=== PATIENT | female | born 1985 | race Caucasian/White ===

== ENCOUNTER 2020-05-20 23:31 | Emergency (ER) | payer SELFPAY ==
[~2020-05-20] VITALS: Ht 162.6 cm; Wt 80.0 kg
--- NOTE | 2020-05-21 00:16 | PHYS DOC ---
General Adult EDM: Chief Complaint: ABDOMINAL PAIN HPI: HPI: Patient is a 35 year old female presents to emergency department the chief complaint of abdominal pain. Patient reports she is experiencing abdominal pain located in the right upper quadrant for the past 2 days. Duration is constant, character is described as knifelike. Severity is 8 out of 10. Patient also reports vomiting, nausea. Patient denies fever, diarrhea, vaginal bleeding or discharge, shortness of breath, chest pain, cough, possibility of being , hematuria, dysuria. Patient denies eating or drinking anything irregular the past 2 days and the pain started suddenly. She denies any other pain or symptoms. Patient is a poor historian and minimally coherent on exam, selectively responds to historical questions. Review of Systems: Review of Systems: Constitutional: Denies fever or chills Eyes: Denies redness or eye pain HENT: Denies nasal congestion or sore throat Respiratory: Denies cough or shortness of breath Cardiovascular: Denies chest pain or palpitations GI: Reports abdominal pain, nausea, and vomiting. Denies diarrhea : Denies dysuria or hematuria Musculoskeletal: Denies back pain or joint pain Integument: Reports rash on her back from new laundry detergent Neurologic: Denies headache, focal weakness or sensory changes Complete systems were reviewed and found to be within normal limits, except as documented in this note. Heart Score: C/O Chest Pain: N/A Current Medications: Current Medications Medications (Trade) Dose Ordered Sig/Yoselin Start Time Stop Time Status Last Admin Dose Admin Famotidine (Pepcid Vial) 20 mg 1X ONCE 05/21/20 00:00 05/21/20 00:01 UNV Ketorolac Tromethamine (Toradol 15mg Vial) 15 mg 1X ONCE 05/21/20 00:00 05/21/20 00:01 UNV Ondansetron HCl (Zofran) 4 mg 1X ONCE 05/21/20 00:00 05/21/20 00:01 UNV Sodium Chloride 1,000 ml @ 1,000 mls/hr Q1H 05/21/20 00:00 05/21/20 00:59 UNV Physical Exam: PE: Constitutional: , mild distress, non-toxic appearance HENT: Normocephalic, atraumatic Eyes: PERRL, EOMI, conjunctiva normal, no discharge Neck: Normal range of motion, no tenderness, supple Lungs & Thorax: No respiratory distress, equal chest rise and fall Abdomen: Soft, no tenderness to palpation on distracted exam. Skin: Warm, dry, no erythema, maculopapular rash noted on the back. Back: No tenderness, no CVA tenderness Extremities: No tenderness, ROM intact, no edema Neurologic: Alert and oriented X 3, normal motor function, normal sensory function, no focal deficits noted Psychologic: Affect normal, judgment normal EKG: EKG: [] Radiology/Procedures: Radiology/Procedures: [] Impression: PROCEDURE: CT ABDOMEN PELVIS WO CONTRAST Abdominal and Pelvis CT, Without Contrast: History: Reason: right sided pain eval for kidney stone / Spl. Instructions: / History: Comparison: None. Procedure: Axial images are obtained of the abdomen and pelvis, without IV or oral contrast. Oral Contrast: No Findings: Evaluation of solid organs is limited without contrast. The appendix is normal. The gallbladder is normal. Liver: Normal. Spleen: Normal. Pancreas: Normal. Adrenal Glands: Normal. Kidneys: Normal. There is no free air or free fluid. There is no lymphadenopathy. The urinary bladder small focus of air in the urinary bladder could be from recent catheter placement.. There is no pericolonic inflammation identified. There is air and stool scattered throughout the colon. Impression: Mild constipation. End impression PQRS Compliance Statement: One or more of the following individualized dose reduction techniques were util ized for this examination: 1. Automated exposure control 2. Adjustment of the mA and/or kV according to patient size 3. Use of iterative reconstruction technique Electronically signed by: Christiano Santana III, MD (05/21/2020 1:55 AM) [facility] Course & Med Decision Making: Course & Med Decision Making Pertinent Labs and Imaging studies reviewed. (See chart for details) [] Patient is a 35-year-old female presents emergency department for abdominal pain x2 days. Patient is poor historian unable to answer historical questions. Labs and CT were unremarkable except for mild constipation noted, likely e tiology of her abdominal pain and drug-seeking positive for methamphetamine. Dragveronica Disclaimer: Leighton Disclaimer: This electronic medical record was generated, in whole or in part, using a voice recognition dictation system. Departure Departure Impression: Primary Impression: Constipation Qualified Codes: K59.00 - Constipation, unspecified Additional Impressions: UTI (urinary tract infection) Qualified Codes: N30.00 - Acute cystitis without hematuria Methamphetamine abuse Nausea & vomiting Qualified Codes: R11.2 - Nausea with vomiting, unspecified Disposition: 01 DC HOME SELF CARE/HOMELESS Condition: STABLE Referrals: CANDI CASTELLANOS MD Patient Instructions: Alcohol and Drug Addiction, Finding Treatment, Clear Liquid Diet, [id number], Constipation, Adult, [id number], Methamphetamine Abuse, Complications, Nausea and Vomiting, [id number], Urinary Tract Infection, [id number] Scripts Ondansetron (ONDANSETRON ODT) 4 Mg Tab.rapdis 1 TAB PO PRN Q6-8HRS PRN for NAUSEA, #16 TAB Prov: BE JACOME DO 05/21/20 Cephalexin (CEPHALEXIN) 500 Mg Capsule 1 CAP PO TID for 7 Days, #21 CAP Prov: BE JACOME DO 05/21/20 Polyethylene Glycol 3350 (MIRALAX) 17 Gm Powd.pack 1 PACKET PO DAILY PRN for CONSTIPATION, #10 PACKET 0 Refills dissolve in water Prov: BE JACOME DO 05/21/20 Sennosides/Docusate Sodium (Colace 2-in-1 Tablet) 1 Each Tablet 1 TAB PO QHS for 30 Days, #30 TAB 0 Refills Prov: BE JACOME DO 05/21/20 BE JACOME DO May 21, 2020 00:16
[2020-05-21 00:59] LABS: BASO # 0.1 x10^3/uL (0.0-0.2); BASO % 1 % (0-3); EOS % 1 % (0-3); HEMOGLOBIN 13.7 g/dL (12.0-15.5); LYMPH # 1.2 x10^3/uL (1.0-4.8); LYMPH % 16 % (24-48); MEAN CORPUSCULAR HEMOGLOBIN 30 pg (25-35); MEAN CORPUSCULAR HGB CONC 33 g/dL (31-37); MEAN CORPUSCULAR VOLUME 90 fL (79-100); MONO # 0.4 x10^3/uL (0.0-1.1); MONO % 6 % (0-9); NEUT # 5.4 x10^3/uL (1.8-7.7); NEUT % 76 % (31-73); PLATELET COUNT 313 x10^3/uL (140-400); RED BLOOD COUNT 4.65 x10^6/uL (3.50-5.40); WHITE BLOOD COUNT 7.1 x10^3/uL (4.0-11.0)
[2020-05-21 01:00] LABS: BILIRUBIN,URINE NEGATIVE (NEG); CLARITY,URINE CLEAR; COLOR,URINE YELLOW; NITRITE,URINE POSITIVE (NEG); PROTEIN,URINE NEGATIVE (NEG-TRACE); UROBILINOGEN,URINE 0.2 mg/dL (0.2 mg/dL)
[2020-05-21] MEDS ORDERED: KETOROLAC 15 MG/ML VIAL. IVP ONE (01:00)
[2020-05-21] MEDS ORDERED: FAMOTIDINE 20 MG/2 ML VIAL IVP ONE (01:00)
[2020-05-21] MEDS ORDERED: IV NORMAL SALINE 1000ML BAG 1,000 ML IV SCH (01:00)
[2020-05-21] MEDS ORDERED: ONDANSETRON PF 4 MG/2 ML VIAL. IVP ONE (01:00)
[2020-05-21 01:06] LABS: BACTERIA,URINE MANY /HPF (0-FEW); BARBITURATES NEG (NEG); BENZODIAZEPINES NEG (NEG); CANNABINOIDS NEG (NEG); COCAINE NEG (NEG); METHADONE NEG (NEG); OPIATES NEG (NEG); PHENCYCLIDINE NEG (NEG)
[2020-05-21 01:06] LABS: CALCIUM 9.1 mg/dL (8.5-10.1); CREATININE 0.8 mg/dL (0.6-1.0); GFR 81.2
[2020-05-21 01:08] LABS: AMPHETAMINE/METHAMPHETAMINE POS (NEG)
[2020-05-21 01:12] LABS: ALBUMIN 3.8 g/dL (3.4-5.0); TOTAL BILIRUBIN 0.4 mg/dL (0.2-1.0); TOTAL PROTEIN 7.8 g/dL (6.4-8.2)
--- NOTE | 2020-05-21 01:57 | RAD ---
Abdominal and Pelvis CT, Without Contrast: History: Reason: right sided pain eval for kidney stone / Spl. Instructions: / History: Comparison: None. Procedure: Axial images are obtained of the abdomen and pelvis, without IV or oral contrast. Oral Contrast: No Findings: Evaluation of solid organs is limited without contrast. The appendix is normal. The gallbladder is normal. Liver: Normal. Spleen: Normal. Pancreas: Normal. Adrenal Glands: Normal. Kidneys: Normal. There is no free air or free fluid. There is no lymphadenopathy. The urinary bladder small focus of air in the urinary bladder could be from recent catheter placement .. There is no pericolonic inflammation identified. There is air and stool scattered throughout the colon. Impression: Mild constipation. End impression PQRS Compliance Statement: One or more of the following individualized dose reduction techniques were utilized for this examinat ion: 1. Automated exposure control 2. Adjustment of the mA and/or kV according to patient size 3. Use of iterative reconstruction technique Electronically signed by: Christiano Santana III, MD (05/21/2020 1:55 AM) [facility]
[2020-05-21] MEDS ORDERED: cefTRIAXone IV Push 1 GM VIAL. IVP ONE (02:30)
[2020-05-21] MEDS ORDERED: SENN-121 PO (02:33)
[2020-05-21] MEDS ORDERED: POLY17PO29 PO (02:33)
[2020-05-21] MEDS ORDERED: CEPH500C PO (02:34)
[2020-05-21] MEDS ORDERED: ONDA4TAB12 PO (02:35)
[2020-05-21 06:56] VITALS: BP 119/77
== END 2020-05-21 07:16 | disposition home or self-care (01) ==
LOC: ER 23:31
DX: N30.00 Acute cystitis without hematuria (principal); K59.00 Constipation, unspecified; R11.2 Nausea with vomiting, unspecified; R21 Rash and other nonspecific skin eruption; R10.11 Right upper quadrant pain; F15.10 Other stimulant abuse, uncomplicated
CPT/HCPCS: 36415; 74176; 80053; 80307; 81001; 81025; 83690; 83735; 85025; 87086; 96361; 96374; 96375; 99284; G0480; J0696; J1885; J2405; J3490; J7030